=== PATIENT | male | born 1985 | race Two or more races ===

== ENCOUNTER 2017-02-20 15:29 | Emergency (ER) | payer SELFPAY ==
[~2017-02-20] VITALS: Ht 175.3 cm; Wt 110.7 kg
[2017-02-20] MEDS ORDERED: hydrALAZINE HCL 20 MG/ML VL IV ONE (16:15)
[2017-02-20 16:34] LABS: Basophils # (auto) 0.1 uL; Basophils % (auto) 0.5 % (0.0-2.0); Eosinophils # (auto) 0 uL; Eosinophils % (auto) 0.3 % (0.0-7.0); Hematocrit 46.3 % (41.0-53.0); Hemoglobin 16.1 g/dL (13.5-17.5); Lymphocytes # (auto) 1.2 uL; Lymphocytes % (auto) 8.7 % (10.0-50.0); Mean Corpuscular Hemoglobin 29.5 pg (28.0-32.0); Mean Corpuscular Hgb Conc. 34.8 g/dL (32.0-36.0); Mean Corpuscular Volume 84.8 fL (80.0-100.0); Mean Platelet Volume 7.1 fL (6.9-10.8); Monocytes # (auto) 0.6 uL; Monocytes % (auto) 4.1 % (0.0-12.0); Neutrophils # (auto) 11.7 uL; Neutrophils % (auto) 86.4 % (37.0-80.0); Platelet Count (auto) 330 10^3/uL (140-450); Red Cell Distribution Width 14.3 % (11.8-14.3); White Blood Cell 13.5 10^3/uL (4.4-10.8)
[2017-02-20 16:47] LABS: BUN/Creatinine Ratio 15.6; Calcium 8.9 mg/dL (8.5-10.1); INR 1.03 (0.9-1.15); Partial Thromboplastin Time 28.5 sec (22.64-33.71); Potassium 3.6 mmol/L (3.5-5.1); Prothrombin Time 11.2 sec (9.37-12.3)
[2017-02-20] MEDS ORDERED: LIDOCAINE W/ EPINEPHRINE 1% 20ML VIAL SC ONE (18:30)
[2017-02-20] MEDS ORDERED: PHENYLEPHRINE INJ 10 MG in SODIUM CHL 0.9% 19 ML IR ONE (18:30)
[2017-02-20] MEDS ORDERED: SODIUM BICARBONATE 8.4 % INJ 50ML VIAL IV ONE (18:30)
[2017-02-20] MEDS ORDERED: LIDOCAINE 1% HCL (LOCAL ANESTH.) INJ 20ML MDV ONE (18:38)
[2017-02-20] MEDS ORDERED: LIDOCAINE 1% HCL (LOCAL ANESTH.) INJ 20ML MDV IJ ONE (19:45)
[2017-02-20 21:15] VITALS: BP 136/87
== END 2017-02-20 20:58 | disposition home or self-care (01) ==
LOC: ER 15:35
DX: N48.30 Priapism, unspecified (principal); F12.10 Cannabis abuse, uncomplicated; I10 Essential (primary) hypertension; Z88.0 Allergy status to penicillin; Z88.6 Allergy status to analgesic agent
CPT/HCPCS: 36415; 80048; 85025; 85610; 85730; 94761; 96374; 96375; 99285; J0360; J2001; J2370; J7030

== ENCOUNTER 2017-03-20 12:30 | Emergency (ER) | payer OTHER ==
[~2017-03-20] VITALS: Ht 175.3 cm; Wt 104.3 kg
[2017-03-20] MEDS ORDERED: HYDROcodone-ACET 10/325MG TAB PO ONE (15:15)
[2017-03-20] MEDS ORDERED: LABETALOL HCL 5 MG/ML ML 20ML VIAL IV ONE (15:15)
[2017-03-20 16:05] LABS: Urine Bacteria NONE SEEN /hpf (None Seen); Urine Blood Negative /uL (Negative); Urine Mucus FEW (None Seen); Urine Specific Gravity 1.012 (1.001-1.035); Urine WBC 1 /hpf (0 - 3)
[2017-03-20 16:08] LABS: Basophils # (auto) 0.1 uL; Basophils % (auto) 0.6 % (0.0-2.0); Eosinophils # (auto) 0.1 uL; Eosinophils % (auto) 0.5 % (0.0-7.0); Hematocrit 44.5 % (41.0-53.0); Hemoglobin 15.2 g/dL (13.5-17.5); Lymphocytes # (auto) 1.4 uL; Lymphocytes % (auto) 8.8 % (10.0-50.0); Mean Corpuscular Hemoglobin 29.2 pg (28.0-32.0); Monocytes # (auto) 0.6 uL; Neutrophils # (auto) 13.5 uL; Neutrophils % (auto) 86.1 % (37.0-80.0); Platelet Count (auto) 317 10^3/uL (140-450); Red Blood Cells 5.18 10^6/uL (4.5-5.90); Red Cell Distribution Width 14.3 % (11.8-14.3); White Blood Cell 15.7 10^3/uL (4.4-10.8)
[2017-03-20] MEDS ORDERED: PHENYLEPHRINE INJ 10 MG in SODIUM CHL 0.9% 19 ML IR ONE (16:15)
[2017-03-20] MEDS ORDERED: LIDOCAINE 2%HCL (LOCAL ANESTH.) INJ 20ML MDV IJ ONE (16:15)
[2017-03-20 16:20] LABS: BUN/Creatinine Ratio 16.1; Calcium 8.8 mg/dL (8.5-10.1); Potassium 3.6 mmol/L (3.5-5.1)
[2017-03-20 16:23] LABS: Bilirubin, Total 0.9 mg/dL (0.2-1.0); Total Protein 8.6 g/dL (6.4-8.2)
[2017-03-20] MEDS ORDERED: cloNIDine HCL 0.1 MG TAB ONE (17:37)
[2017-03-20] MEDS ORDERED: cloNIDine HCL 0.1 MG TAB PO ONE (18:00)
[2017-03-20 18:25] VITALS: BP 159/96
== END 2017-03-20 18:22 | disposition home or self-care (01) ==
LOC: ER 12:38
DX: N48.30 Priapism, unspecified (principal); I10 Essential (primary) hypertension; Z88.0 Allergy status to penicillin; Z88.6 Allergy status to analgesic agent; F12.10 Cannabis abuse, uncomplicated
CPT/HCPCS: 36415; 54220; 80053; 81001; 85025; 96374; 99284; J2370; 10160; 12001